=== PATIENT | female | born 1935 | race Caucasian/White ===

== ENCOUNTER 2016-10-06 14:45 | Emergency (ER) | payer MEDICARE, BC ==
[2016-10-06 15:05] VITALS: BP 180/89
--- NOTE | 2016-10-06 15:34 | UC ---
UC General HPI - HPI Summary HPI Summary: The patient comes in today for: 1. Watery stool: Onset: Patient states about one week, but her daughter states 2 weeks. Palliative/provocative: No particular food makes the diarrhea better or worse. Quality: No pain. Region: GI Severity: 0/10 Time: Stools last a few minutes. Associated symptoms: Frequency; 1-2 stools/day. Consistency: Brown water, no mucous, pus or blood. Vomiting: None. Traveling: None. Rx: None. Fevers: None. Intestinal problems: NOne. No floating or oil on the toilet water. Previous evaluation: None. OTC: No OTC Rx for GI tract. PCP: Dr. Waggoner. * - History of Current Complaint Chief Complaint: UCAbdominalPain Stated Complaint: ABDOMINAL COMPLAINT Time Seen by Provider: 10/06/16 14:56 Hx Obtained From: Patient, Family/Salon Receptionist - Allergy/Home Medications Allergies/Adverse Reactions: Allergies Allergy/AdvReac Type Severity Reaction Status Date / Time No Known Allergies Allergy Verified 10/06/16 15:06 Home Medications: Home Medications Bimatoprost 0.01% OPHTH (NF) [Lumigan 0.01% OPHTH (NF)] 1 drop LEFT EYE QPM 02/14 [History Confirmed 10/06/16] Brinzolamide 1% OPHTH PRETTY(NF) [Azopt 1% OPHTH PRETTY(NF)] 10/06/16 [History] Lisinopril [Zestril 10 MG-] 10 mg PO DAILY 10/06/16 [History Confirmed 10/06/16] PMH/Surg Hx/FS Hx/Imm Hx Previously Healthy: No - Glaucoma, Endocrine History Of: Denies: Diabetes, Thyroid Disease, Hyperthyroidism, Hypothyroidism, Dyslipidemia Cardiovascular History Of: Reports: Hypertension Denies: Cardiac Disorders, Pacemaker/ICD, Myocardial Infarction, Congestive Heart Failure, Atrial Fibrillation, Deep Vein Thrombosis, Bleeding Disorders Respiratory History Of: Denies: COPD, Asthma, Bronchitis, Pneumonia, Pulmonary Embolism GI/ History Of: Denies: Gastroesophageal Reflux, Ulcer, Gastrointestinal Bleed, Gall Bladder Disease, Kidney Stones, Diverticulitis, Renal Disease, Urosepsis Neurological History Of: Denies: TIA, CVA, Dementia, Seizures, Migraine Psychological History Of: Denies: Anxiety, Depression, Bipolar Disorder, Schizophrenia, Post Traumatic Stress Disorder Cancer History Of: Denies: Lung Cancer, Colorectal Cancer, Breast Cancer, Prostate Cancer, Cervical Cancer Other History Of: Negative For: HIV, Hepatitis B, Hepatitis C, Anticoagulant Therapy - Surgical History Surgical History: None - Family History Known Family History: Positive: Hypertension Negative: Cardiac Disease - Social History Occupation: Unemployed, Retired Alcohol Use: None Substance Use Type: None Smoking Status (MU): Never Smoked Tobacco Review of Systems Constitutional: Negative Skin: Negative Eyes: Negative ENT: Negative Respiratory: Negative Cardiovascular: Negative Gastrointestinal: Diarrhea Genitourinary: Negative All Other Systems Reviewed And Are Negative: Yes Physical Exam Triage Information Reviewed: Yes Appearance: Well-Appearing, No Pain Distress, Well-Nourished Vital Signs: Initial Vital Signs Temp 98.3 F 10/06/16 15:00 Pulse 74 10/06/16 15:00 Resp 16 10/06/16 15:00 BP 180/89 10/06/16 15:00 Pulse Ox 100 10/06/16 15:00 Vital Signs Reviewed: Yes Eyes: Positive: Conjunctiva Clear. Negative: Discharge ENT: Positive: Hearing grossly normal. Negative: Pharyngeal erythema, Nasal congestion, Nasal drainage, TM bulging, TM dull, TM red, Tonsillar swelling, Tonsillar exudate Dental: Negative: Gross Decay/Caries @, Dental Fracture @ Neck: Positive: Supple, Nontender, No Lymphadenopathy. Negative: Nuchal Rigidity Respiratory: Positive: Lungs clear, No respiratory distress, No accessory muscle use. Negative: Crackles, Wheezing Cardiovascular: Positive: RRR, No Murmur Abdomen Description: Positive: Nontender, No Organomegaly, Soft. Negative: Distended, Guarding Bowel Sounds: Positive: Present Musculoskeletal: Positive: Strength Intact, ROM Intact, No Edema Neurological: Positive: Alert, Muscle Tone Normal Psychological: Positive: Normal Response To Family, Age Appropriate Behavior, Consolable Skin: Negative: rashes, breakdown Course/Dx - Course Course Of Treatment: Patient was told that I was not too concerned about her having 2 stools a day in terms of dehydration--particularly with her good appetite. However, I was not able to determine exactly the cause of her diarrhea. She was told that it could be related to a viral gastroenteritis and a temporary inability to digest milk sugar. With her daily intake of cottage cheese, chocolate milk, yogurt and ice cream, she has a significant intake of dairy products. She was told that we could order stool studies and an initial work up for her diarrhea, but she would have to follow up with her primary care provider for further evaluation. However, she declined us ordering stool studies at this time. - Differential Dx - Multi-Symptom Provider Diagnoses: diarrhea Discharge - Discharge Plan Condition: Stable Disposition: HOME Patient Education Materials: Acute Diarrhea (ED) Referrals: Josy Waggoner MD [Primary Care Provider] - 1 Week (Please see your primary care provider in a week to see how well you are doing. If you get worse, please be seen sooner in the ER or through us.)
== END 2016-10-06 16:10 | disposition home or self-care (01) ==
LOC: UCEAST 14:45
DX: R19.7 Diarrhea, unspecified (principal)
CPT/HCPCS: 99201; G0463